=== PATIENT | female | born 1995 | race Hispanic/Latino ===

== ENCOUNTER → 2024-09-14 | Outpatient (CLI) | payer BC ==
--- NOTE | 2024-09-14 12:28 | HMCIMG ---
US ABDOMINAL RUQ\E\LTD HISTORY: Abnormal liver function test COMPARISON: None TECHNIQUE: Right upper quadrant abdominal ultrasound study was performed. FINDINGS: Area with focal fat sparing is seen in the liver. The visualized portion of the pancreas is within normal limits. Liver is echogenic consistent with liver parenchymal disease. No gallstone is seen. Common duct measures 3.3 mm. No evidence of gallbladder wall thickening is seen. Right kidney measures 11 x 5 x 5 cm. No hydronephrosis is seen of the right kidney. IMPRESSION: 1. No gallstones or ductal dilatation is seen. 2. No hydronephrosis is seen.
== END | disposition home or self-care (01) ==
LOC: RAH 08:57
PROVIDERS: ATTEND Internal Medicine
DX: R94.5 Abnormal results of liver function studies (principal)
CPT/HCPCS: 76705